=== PATIENT | female | born 1990 | race Caucasian/White ===

== ENCOUNTER 2025-05-24 09:19 | Emergency (ER) | payer BC, SELFPAY ==
--- OUTSIDE RECORDS SUMMARY | 2025-05-24 09:22 | XMS_ITS | Clinical Summary ---
Author Organization [facility] Address [address] [place] [address] Phone Care Team Providers Care Photographic Platemaker Name Role Phone Provider, None Primary Care Provider Unavailabl e Medications dicyclomine (BENTYL) 20 MG Tablet Take 1 Tablet by mouth every 6 hours. 30 Tablet 10/11/2023 Active traMADol (ULTRAM) 50 MG TabletIndicatio ns:Lower abdominal pain Take 1-2 Tablets by mouth every 6 hours as needed for Moderate or more severe pain. 20 Tablet 10/11/2023 Active Social History Tobacco Use Types Packs/Day Years Used Date Smoking Tobacco: Never Smokeless Tobacco: Never Tobacco Cessation:Counseling Given: Not Answered Alcohol Use Standard Drinks/Week Comments Never 0 (1 standard drink = 0.6 oz pur e alcohol) Comments Unknown Sex and Gender Information Value Date Recorded Sex Assigned at Not on file Legal Sex Female 12:32 AM CDT Gender Identity Not on file Sexual Orientation Not on file Last Filed Vital Signs Vital Sign Reading Time Taken Comments Blood Pressure 129/64 10/11/2023 8:00 PM ELECTION CLERK Pulse 104 10/11/2023 8:00 PM ELECTION CLERK Temperature 36.5 C (97.7 F) 10/11/2023 4:10 PM ELECTION CLERK Respiratory Rate 17 10/11/2023 8:00 PM ELECTION CLERK Oxygen Saturation 97% 10/11/2023 8:00 PM ELECTION CLERK Inhaled Oxygen Concentration - - Weight 68.7 kg (151 lb 7.3 oz) 10/11/2023 4:10 P M ELECTION CLERK Height 162.6 cm (5' 4) 10/11/2023 4:10 PM ELECTION CLERK Body Mass Index 26 10/11/2023 4:10 PM ELECTION CLERK Plan of Treatment Health Maintenance Due Date Last Done Comments Hepatitis C Virus (HCV) Screening 1989 TdaP Immunization 1989 Hepatitis B Immunization (1 of 3 - 19+ 3-dose series) 2008 Pap Smear 2010 Human Papillomavirus (HPV) Immunization (1 - 3-dose SCDM series) 2016 Cervical Cancer Screening (CCS) 12/09/2019 HPV/Cotest 12/09/2019 Influenza Immunization (#1) 2025 SARS-COV-2 Immunization ( - season) 2025 Respiratory Syncytial Virus (RSV) Immunization (Adult) (1 - 1-dose 75+ series) 2064 Meningococcal Immunization (ACWY) Aged Out No longer eligible based on patient's age to complete this topic Pneumococcal Immunization Combined Aged Out No longer eligible based on patient's age to complete this topic Rotavirus Immunization Aged Out No lo nger eligible based on patient's age to complete this topic Insurance MEDICAID [place] Care Teams Photographic Platemaker Relationship Specialty Start Date End Date Provider, None [place] PCP - General 02/20/23
[2025-05-24 09:24] VITALS: BP 114/75; PULSE 82; RESP 20; TEMP 36.6; O2SAT 100
--- NOTE | 2025-05-24 09:42 | ED.GENADULT ---
HPI - General Adult General Chief complaint: Ear Stated complaint: back of right ear sore Time Seen by Provider: 05/24/25 09:42 Source: patient, RN notes reviewed and old records reviewed Mode of arrival: ambulatory Limitations: no limitations History of Present Illness HPI narrative: 34-year-old female presents to the [facility] with redness to the back of her right ear. Reports that she got her hair done yesterday. states that she developed the redness and clear drainage Treatment prior to Related Data Allergies Allergy/AdvReac Type Severity Reaction Status Date / Time No Known Allergies Allergy Verified 05/24/25 09:38 Review of Systems Review of Systems: All systems reviewed & are unremarkable except as noted in HPI and below Constitutional: Constitutional: Reports as per HPI ENT: Reports system reviewed and no additional complaints, except as documented Cardiovascular: Cardiovascular: Reports no additional cardiovascular complaints, Denies chest pain and Denies dyspnea Respiratory: Respiratory: Reports no additional respiratory complaints, Denies chest congestion, Denies cough and Denies dyspnea Musculoskeletal: Musculoskeletal: Reports no additional musculoskeletal complaints Integumentary/Breasts: Skin/Breast: Reports system reviewed and no additional complaints, except as docu [facility] Past Medical History Medical History Encounter for screening examination for sexually transmitted disease PCR DNA positive for HSV2 Condyloma Anxiety Abnormal Pap smear of cervix 07/12/2012 [facility] hpv positive Surgical History Surgical History History of colposcopy with cervical biopsy (08/16/12) mild dysplasia DANNY I History of gynecologic surgery 06/14/12 vulvar biopsy--condyloma acuminatum 07/12/12 right groin skin tag removal--benign Social History Social History Smoking status: Never smoker Alcohol intake: never Substance use: never Substance use type: does not use Living arrangements: other Additional living arrangements comments: single Occupation/Education: occupation 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 There is no relevant family history pertinent to the patient complaint. Exam Const: General: cooperative, healthy appearing, comfortable, no acute distress, well developed, alert and well nourished Nutritional Appearance: well nourished Orientation/consciousness: patient oriented x3 Limitations: no limitations HENMT: Head: normal to inspection Ears: other (Posterior right ear with mild erythema, no swelling. Reports clear drainag) Eyes: General: appearance normal, both eyes and all related structures Alignment and Position: alignment normal Neck: Neck: normal visual inspection, full ROM, no lymphadenopathy and no meningeal signs Chest: Chest palpation & inspection: normal inspection of the chest Resp: Effort & Inspection: normal respiratory effort and able to speak in complete sentences Auscultation: clear to auscultation bilaterally, no crackles, no rales, no rhonchi and no wheezes Cardio: Rate: regular rate Skin: General skin exam: normal color and no rashes or lesions noted Neuro: General: patient oriented x3, gait normal, moves all extremities and no meningeal signs Cognition (Neuro): normal cognition Speech: normal speech Gait exam (Neuro): Normal gait present Extrem: General: normal to inspection, full ROM, capillary refill normal and normal gait Psych: Appearance: grossly normal and well kempt Mental Status: mental status grossly normal Speech and movement: Normal speech and movement present and Clear speech present Affect: normal affect Attitude: cooperative Course Course Level of Care: Express Care Visit Vital Signs Vital signs: Vital Signs Temperature 97.8 F 05/24/25 09:24 Pulse Rate 82 05/24/25 09:24 Respiratory Rate 20 05/24/25 09:24 Blood Pressure 114/75 05/24/25 09:24 Pulse Oximetry 100 05/24/25 09:24 Oxygen Delivery Room Air 05/24/25 09:24 Temperature 97.8 F 05/24/25 09:24 Pulse Rate 82 05/24/25 09:24 Respiratory Rate 20 05/24/25 09:24 Blood Pressure 114/75 05/24/25 09:24 Pulse Oximetry 100 05/24/25 09:24 Oxygen Delivery Room Air 05/24/25 09:24 Reviewed Medical Decision Making MDM Narrative Medical decision making narrative: Patient was some inflammation posterior right ear most likely a dermatitis. Patient is appropriate for outpatient treatment with close follow-up Discharge instructions reviewed with patient, as well as provided in writing per nursing staff. The instructions also include specific and strict return/GO TO THE ER as well as f/u information. All questions have been answered, and the patient deny any further questions with discharge and discharge plan. Some parts of this dictation were generated by voice recognition software and may contain typographical and/or grammatical inaccuracies. Differential Diagnosis Differential Diagnosis: Dermatitis, cellulitis, allergic reaction Medical Records Medical records reviewed: Yes I reviewed the external patient's medical records. Vital Signs Vital Signs: Vital Signs Temperature 97.8 F 05/24/25 09:24 Pulse Rate 82 05/24/25 09:24 Respiratory Rate 20 05/24/25 09:24 Blood Pressure 114/75 05/24/25 09:24 Pulse Oximetry 100 05/24/25 09:24 Oxygen Delivery Room Air 05/24/25 09:24 Temperature 97.8 F 05/24/25 09:24 Pulse Rate 82 05/24/25 09:24 Respiratory Rate 20 05/24/25 09:24 Blood Pressure 114/75 05/24/25 09:24 Pulse Oximetry 100 05/24/25 09:24 Oxygen Delivery Room Air 05/24/25 09:24 Reviewed Lab Data Lab results reviewed: Yes I reviewed the patient's lab results. Labs: Reviewed Critical Care Time Critical Care Time Critical Care Time: No Discharge Plan Discharge Clinical Impression: Dermatitis Patient Disposition: Home Condition: Stable Instructions: Antibiotic Form, Dermatitis (ED) Additional Instructions: The most important part of your care is follow up with Primary care provider. Take Benadryl 25mg every 8 hours for itching Take Zyrtec every day Keep area clean and dry. Wash with cool soapy water, pat dry, applied steroid cream 2 to 3 times a day for 7 days Avoid hot showers, Take cool showers. Hot showers will make rashes worse Apply cool compresses every 2-3 hours for 15 minutes Go to the ER for new or worsening symptoms such as shortness of breath. Patient Language: Citizen Of [place] Prescriptions: New triamcinolone acetonide 0.1 % cream 1 applic topical TID Qty: 15 0RF Follow-up/Referrals: PHYSICIAN,TOMATO PASTE MAKER [Primary Care Provider, Internal Medicine] Time of Disposition: 09:54
== END 2025-05-24 09:57 | disposition home or self-care (01) ==
PROVIDERS: Emergency Provider Nurse Practitioner
DX: L30.9 Dermatitis, unspecified (principal)
CPT/HCPCS: 99213; G0463